=== PATIENT | female | born 1995 | race Caucasian/White ===

== ENCOUNTER 2019-01-12 19:54 | Emergency (ER) | payer BC ==
[2019-01-12 20:18] VITALS: BP 108/69
--- NOTE | 2019-01-12 21:11 | UC ---
Respiratory Complaint HPI - HPI Summary HPI Summary: Ms. Lemos presents with URI symptoms of congestion, sore throat and earaches for over a week. Now she has a lot of pain in her throat and lower face (she points at her maxillary sinuses). She also has a mild cough. - History of Current Complaint Chief Complaint: UCRespiratory Stated Complaint: SORE THROAT, AND ACHES Time Seen by Provider: 01/12/19 20:59 Hx Obtained From: Patient Hx Last Menstrual Period: 12/17/18 ?: No - Denies Timing: Constant Severity Initially: Moderate Severity Currently: Moderate Pain Intensity: 5 Character: Cough: Nonproductive Aggravating Factors: Nothing Alleviating Factors: Nothing Associated Signs And Symptoms: Positive: URI, Nasal Congestion, Sinus Discomfort - Allergies/Home Medications Allergies/Adverse Reactions: Allergies Allergy/AdvReac Type Severity Reaction Status Date / Time No Known Allergies Allergy Verified 01/12/19 20:18 Home Medications: Home Medications Diphenhydra/Phenyleph/Acetamin [Cold & Flu Relief Multi-S 12.5-5-325 mg/10Ml] 1 liq PO PRN 01/12/19 [History] Sertraline* [Zoloft*] 100 mg PO DAILY 01/12/19 [History Confirmed 01/12/19] PMH/Surg Hx/FS Hx/Imm Hx Previously Healthy: Yes - Surgical History Surgical History: Yes Surgery Procedure, Year, and Place: 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 Triage Information Reviewed: Yes Appearance: Well-Appearing Vital Signs: Initial Vital Signs Temp 99.4 F 01/12/19 20:14 Pulse 82 01/12/19 20:14 Resp 16 01/12/19 20:14 BP 108/69 01/12/19 20:14 Pulse Ox 100 01/12/19 20:14 Vital Signs Reviewed: Yes Eye Exam: Normal ENT: Positive: Pharyngeal erythema, Nasal congestion, Nasal drainage, TMs normal , Sinus tenderness, Other - Her maxillary sinuses don't tranilluminate well Dental Exam: Normal Neck: Positive: Supple, Nontender, Enlarged Nodes @ - right anterior cervical Respiratory Exam: Normal Cardiovascular Exam: Normal Skin Exam: Normal Respiratory Course/Dx - Course Course Of Treatment: This likely stared as a viral URI but I think she is getting a secondary sinus infection. I will treat her with augmentin and a decongestant. - Differential Dx/Diagnosis Provider Diagnosis: Sinusitis, URI (upper respiratory infection) Discharge - Sign-Out/Discharge Documenting (check all that apply): Patient Departure All imaging exams completed and their final reports reviewed: No Studies - Discharge Plan Condition: Stable Disposition: HOME Patient Education Materials: Upper Respiratory Infection (ED), Sinusitis (ED) Forms: *Work Release Referrals: Qian Jensen MD [Primary Care Provider] - - Billing Disposition and Condition Condition: STABLE Disposition: Home
[2019-01-12 21:22] LABS: Influenza A Molecular NEGATIVE (Negative); Influenza B Molecular NEGATIVE (Negative)
[2019-01-12] MEDS ORDERED: Amoxicillin/Clavulanate TAB* 875 MG PO ONE (21:42)
== END 2019-01-12 21:52 | disposition home or self-care (01) ==
LOC: UCEAST 19:54
DX: J32.9 Chronic sinusitis, unspecified (principal); J06.9 Acute upper respiratory infection, unspecified
CPT/HCPCS: 87651; 99212; A9270-GY; G0463

== ENCOUNTER 2019-04-10 07:53 | Emergency (ER) | payer BC ==
[2019-04-10 08:03] VITALS: BP 114/76
--- NOTE | 2019-04-10 08:24 | UC ---
Respiratory Complaint HPI - HPI Summary HPI Summary: 23 yo female presents with feeling like she cannot take a full breath. She tells me that since 04/07 she feels that she can't "catch her breath" unless she yawns or tries to breath really deeply. She has had this happen in the past about 1 year ago when she was wearing a mask during flu season, but as soon as she removed the mask her symptoms resolved. She is feeling well otherwise and denies fever, recent illness, sinus symptoms, sore throat, cough, SOB, chest pain/pressure/palpitations, abdominal pain, n/v, dysuria. No recent travel. No personal hx or fam hx of blood clots or PEs. She does not smoke. She took a plan B pill 2-3 weeks ago as she was sexually active without protection with her boyfriend - states that there could be a chance she is . 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 - Family History Known Family History: Positive: Other - anxiety - Social History Occupation: Employed Full-time Alcohol Use: Occasionally Substance Use Type: None Smoking Status (MU): Never Smoked Tobacco Review of Systems All Other Systems Reviewed And Are Negative: Yes Constitutional: Positive: Negative Skin: Positive: Negative Eyes: Positive: Negative ENT: Positive: Negative Respiratory: Positive: Other - "can't take full breath" Cardiovascular: Positive: Negative Gastrointestinal: Positive: Negative Genitourinary: Positive: Negative Motor: Positive: Negative Neurovascular: Positive: Negative Musculoskeletal: Positive: Negative Neurological: Positive: Negative Psychological: Positive: Negative Physical Exam - Summary Physical Exam Summary: GENERAL: NAD. WDWN. No pain distress. SKIN: No rashes, sores, or open wounds. HEENT: Head: AT/NC Eyes: PERRLA. EOM intact. Conjunctiva clear without inflammation or discharge. Ears: Hearing grossly normal. TMs intact, no bulging, erythema, or edema. Nose: Nasal mucosa pink and moist. NTTP maxillary and frontal sinus. Throat: Posterior oropharynx without exudates, erythema, or tonsillar enlargement. Uvula midline. NECK: Supple. Nontender. No lymphadenopathy. CHEST: CTAB. No r/r/w. No accessory muscle use. Breathing comfortably and in no distress. CV: RRR. Without m/r/g. Pulses intact. Brisk cap refill. ABDOMEN: Soft. NTTP. No distention or guarding. Bowel sounds present NEURO: Alert. PSYCH: Age appropriate behavior. Triage Information Reviewed: Yes Vital Signs: Initial Vital Signs Temp 97.7 F 04/10/19 07:57 Pulse 81 04/10/19 07:57 Resp 18 04/10/19 07:57 BP 114/76 04/10/19 07:57 Pulse Ox 100 04/10/19 07:57 Vital Signs Reviewed: Yes Respiratory Course/Dx - Course Course Of Treatment: EKbpm NSR. No STEMI as read by Dr. Henriquez. POC glucose 100 CXR: IMPRESSION: #. Elevated lung volumes may reflect obstructive lung disease or simply exuberant inspiratory effort for examination. #. No acute cardiopulmonary process evident. Urine negative. Well's criteria score is 0 and is low risk. She is hemodynamically stable without tachycardia or tachypnea. She does not smoke and has not had any recent travel. Low suspicion for PE at this time. Discussed case with Dr. Henriquez and he agrees. I recommended that she f/u with her PCP for further evaluation. She is asking to try an albuterol inhaler at this time in case this is allergies causing bronchospasm or inflammation. Will trial her with albuterol. We had a long discussion that her workup and exam were normal. Strongly advised that if she develops new or worsening symptoms, shortness of breath, chest or abdominal pain to go to the ER. Pt voiced understanding and agrees with plan. - Differential Dx/Diagnosis Provider Diagnosis: Dyspnea Discharge - Sign-Out/Discharge Documenting (check all that apply): Patient Departure All imaging exams completed and their final reports reviewed: Yes - Discharge Plan Condition: Stable Disposition: HOME Prescriptions: Albuterol HFA INHALER* [Ventolin HFA Inhaler*] 1 puff INH Q6H PRN #1 mdi PRN Reason: Sob/Wheezing Patient Education Materials: Dyspnea (ED) Forms: *Work Release Referrals: Qian Jensen MD [Primary Care Provider] - Additional Instructions: If you develop a fever, shortness of breath, chest pain, new or worsening symptoms - please go to the ED immediately. Your chest X-Ray, test, glucose, and EKG were all normal today. I recommend that you follow up with your Primary Doctor within 1 week for further evaluation if your symptoms continue. - Billing Disposition and Condition Condition: STABLE Disposition: Home
== END 2019-04-10 10:19 | disposition home or self-care (01) ==
LOC: UCEAST 07:53
DX: R06.00 Dyspnea, unspecified (principal); Z32.02 Encounter for pregnancy test, result negative
CPT/HCPCS: 71046; 84702; 93005; 99212; G0463

== ENCOUNTER 2019-04-14 11:39 | Emergency (ER) | payer BC ==
[2019-04-14 11:56] VITALS: BP 114/71
--- NOTE | 2019-04-14 12:21 | UC ---
Complaint Female HPI - HPI Summary HPI Summary: 23-year-old female who is here because she wants treatment for a vaginal yeast infection. She states she's had vaginal itching with no discharge over the past 2 days. Today she did insert a Monistat but would like the Diflucan. She denies any urinary symptoms. - History Of Current Complaint Chief Complaint: UCGU Stated Complaint: UTI Time Seen by Provider: 04/14/19 12:13 Hx Obtained From: Patient Hx Last Menstrual Period: 03/04/19 ?: No Onset/Duration: Gradual Onset Timing: Constant Severity Initially: Mild Severity Currently: Mild Pain Intensity: 4 Aggravating Factor(s): Nothing, Other - Constant vaginal itching. 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 - Family History Known Family History: Positive: Other - anxiety - Social History Alcohol Use: Occasionally Substance Use Type: None Smoking Status (MU): Never Smoked Tobacco Review of Systems All Other Systems Reviewed And Are Negative: Yes Genitourinary: Positive: Vaginal/Penile Itching Is Patient Immunocompromised?: No Physical Exam Triage Information Reviewed: Yes Appearance: Well-Appearing, No Pain Distress, Well-Nourished Vital Signs: Initial Vital Signs Temp 99.1 F 04/14/19 11:52 Pulse 89 04/14/19 11:52 Resp 18 04/14/19 11:52 BP 114/71 04/14/19 11:52 Pulse Ox 100 04/14/19 11:52 Vital Signs Reviewed: Yes Respiratory: Positive: Lungs clear, Normal breath sounds, No respiratory distress, No accessory muscle use Cardiovascular: Positive: RRR, No Murmur, Pulses Normal, Brisk Capillary Refill Abdomen Description: Positive: Nontender, No Organomegaly, Soft. Negative: CVA Tenderness (R), CVA Tenderness (L) Bowel Sounds: Positive: Present Pelvic Exam: Positive: Other - Patient preferred to not have a pelvic exam at this time she would rather have the Diflucan in the follow-up with her primary care provider as needed. Musculoskeletal Exam: Normal Neurological Exam: Normal Psychological Exam: Normal Skin Exam: Normal Complaint Female Dx - Course Course Of Treatment: Patient preferred to not have a pelvic exam at this time she would rather have the Diflucan in the follow-up with her primary care provider as needed. - Differential Dx/Diagnosis Provider Diagnosis: Yeast infection Discharge - Sign-Out/Discharge Documenting (check all that apply): Patient Departure All imaging exams completed and their final reports reviewed: No Studies - Discharge Plan Condition: Fair Disposition: HOME Prescriptions: Fluconazole 150 MG TAB* [Diflucan 150 MG TAB*] 150 mg PO UC ONCE 1 Days #1 tablet Patient Education Materials: Yeast Infection (ED) Referrals: Qian Jensen MD [Primary Care Provider] - Additional Instructions: Follow-up with your primary care provider or your [facility] physician if no improvement in 3 or 4 days. - Billing Disposition and Condition Condition: FAIR Disposition: Home
== END 2019-04-14 12:20 | disposition home or self-care (01) ==
LOC: UCEAST 11:39
DX: B37.9 Candidiasis, unspecified (principal)
CPT/HCPCS: 99212; G0463

== ENCOUNTER 2019-12-18 14:54 | Emergency (ER) | payer BC ==
--- NOTE | 2019-12-18 18:53 | UC ---
FLU HPI - HPI Summary HPI Summary: 24-year-old female presents with onset of general malaise, fatigue, headache, body aches, mild nasal congestion, mild sore throat, and a dry nonproductive cough 3 days ago. No measured fever. No recent travel or known contact with persons isolated for or diagnosed with COVID-19. Denies ear pain, dysphagia, chest pain, shortness of breath, abdominal pain, nausea, vomiting, or diarrhea. - History of Current Complaint Chief Complaint: UCRespiratory Stated Complaint: COUGH, FEVER Time Seen by Provider: 12/18/19 18:37 Hx Obtained From: Patient Hx Last Menstrual Period: current Pain Intensity: 3 - Allergy/Home Medications Allergies/Adverse Reactions: Allergies Allergy/AdvReac Type Severity Reaction Status Date / Time No Known Allergies Allergy Verified 12/18/19 18:42 Home Medications: Home Medications NK [No Home Medications Reported] 12/18/19 [History Confirmed 12/18/19] PMH/Surg Hx/FS Hx/Imm Hx Previously Healthy: Yes - Denies significant PMH - Surgical History Surgical History: Yes Surgery Procedure, Year, and Place: 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 Negative: Fever, Chills Skin: Negative: Rash Eyes: Negative: Drainage, Eye Redness ENT: Positive: Sore Throat, Sinus Congestion. Negative: Ear Ache, Nasal Discharge, Sinus Pain/Tenderness Respiratory: Positive: Cough. Negative: Shortness Of Breath Cardiovascular: Negative: Palpitations, Chest Pain Gastrointestinal: Negative: Abdominal Pain, Vomiting, Diarrhea, Nausea Genitourinary: Positive: Negative Musculoskeletal: Positive: Myalgia Neurological/Mental Status: Positive: Headache Is Patient Immunocompromised?: No Physical Exam - Summary Physical Exam Summary: GENERAL APPEARANCE: Well developed, well nourished, alert and cooperative, and appears to be in no acute distress. EYES: Conjunctiva clear. No drainage. EARS: External auditory canals and tympanic membranes clear, hearing grossly intact. NOSE: Mild nasal congestion. No nasal discharge. THROAT: Mild pharyngeal erythema without tonsilar inflammation, swelling, exudate, or lesions. Uvula midline. NECK: Neck supple, non-tender without lymphadenopathy. CARDIAC: Normal S1 and S2. No S3, S4 or murmurs. Rhythm is regular. There is no peripheral edema, cyanosis or pallor. Extremities are warm and well perfused. Capillary refill is less than 2 seconds. Peripheral pulses intact. LUNGS: Clear to auscultation without rales, rhonchi, wheezing or diminished breath sounds. Cough nonobserved. ABDOMEN: Positive bowel sounds. Soft, nondistended, nontender. No guarding or rebound. No masses or hepatosplenomegally. MUSKULOSKELETAL: ROM intact to all extremities. No joint erythema or tenderness. Normal muscular development. Normal gait. SKIN: Skin normal color, texture and turgor with no lesions or eruptions. Triage Information Reviewed: Yes Vital Signs Reviewed: Yes Flu Course/Dx - Course Course Of Treatment: 24-year-old female presents with onset of general malaise, fatigue, headache, body aches, mild nasal congestion, mild sore throat, and a dry nonproductive cough 3 days ago. No measured fever. No recent travel or known contact with persons isolated for or diagnosed with COVID-19. Denies ear pain, dysphagia, chest pain, shortness of breath, abdominal pain, nausea, vomiting, or diarrhea. Afebrile. Vital signs stable. Patient had mild nasal congestion, normal TMs , mild pharyngeal erythema without tonsillar swelling or exudate, no cervical lymphadenopathy, clear bilateral breath sounds, and otherwise unremarkable exam. Rapid flu test was negative. Reviewed results with the patient and recommending symptomatic treatment for a viral upper respiratory infection. She is to follow-up with her primary care provider in 3-5 days if symptoms are not improving. Anticipatory guidance and warning symptoms were reviewed with the patient. Verbalizes understanding and agrees with plan of care. - Differential Dx/Diagnosis Differential Diagnosis/HQI/PQRI: Bronchitis, Influenza, Pneumonia, Upper Respiratory Infection Provider Diagnosis: URI (upper respiratory infection) Discharge ED - Sign-Out/Discharge Documenting (check all that apply): Patient Departure All imaging exams completed and their final reports reviewed: No Studies - Discharge Plan Condition: Stable Disposition: HOME Patient Education Materials: Upper Respiratory Infection (ED) Forms: *Work Release Referrals: Qian Jensen MD [Primary Care Provider] - 3 Days Additional Instructions: The rapid flu test performed in the clinic today was negative. Your history and exam are consistent with a viral upper respiratory infection. Viral infections do not respond to antibiotics and are limited to the treatment of symptoms. Viral infections typically run their course in 7-10 days. Drink plenty of fluids to avoid dehydration especially if you are running any fever. Use a saline rinse kit such as Neti Pot or NeilMed at least twice a day to help thin secretions and promote drainage of the sinuses. Use fluticasone (Flonase) nasal spray 2 sprays each nostril once daily. Take over the counter acetaminophen (Tylenol) or ibuprofen (Advil, Motrin) according to directions as needed for pain or fever. Use salt water gargles several times a day if you have a sore throat. You may also use Chloraseptic spray or Cepacol lonzenges according to directions which contain a numbing medication and can provide some temporary relief from your sore throat. Follow up with your primary care provider in 3-5 days if symptoms persist. Seek immediate medical attention in the emergency room if you have fever greater than 100.5 F despite taking acetaminophen or ibuprofen, have chest pain , difficulty breathing, are unable to swallow, or have any worsening of symptoms. - Billing Disposition and Condition Condition: STABLE Disposition: Home
[2019-12-18 19:20] VITALS: BP 119/68
[2019-12-18 19:22] LABS: Influenza A Molecular Negative (Negative); Influenza B Molecular Negative (Negative)
[2019-12-19 13:58] LABS: HIV 4th Generation Nonreactive (Nonreactive)
== END 2019-12-18 19:28 | disposition home or self-care (01) ==
LOC: UCEAST 14:54
DX: J06.9 Acute upper respiratory infection, unspecified (principal); F17.210 Nicotine dependence, cigarettes, uncomplicated
CPT/HCPCS: 36415; 87389; 99211; G0463

== ENCOUNTER 2019-12-20 09:20 | Emergency (ER) | payer BC ==
--- NOTE | 2019-12-20 09:26 | UC ---
Respiratory Complaint HPI - HPI Summary HPI Summary: The patient is a 24-year-old female who works at a [employer]. She had the onset last night of fever, shaking chills, headache, myalgias, nasal congestion , and postnasal drip. This morning she has had nausea and some crampy abdominal pain. She has no history of asthma but has an inhaler at home (.ex smoker with frequent bronchitis) - History of Current Complaint Stated Complaint: FEVER, RESPIRATORY Time Seen by Provider: 12/20/19 09:22 Hx Obtained From: Patient Hx Last Menstrual Period: current Onset/Duration: Gradual Onset, Lasting Hours Timing: Constant Severity Initially: Moderate Severity Currently: Moderate Pain Intensity: 6 Character: Cough: Nonproductive Aggravating Factors: Nothing Alleviating Factors: Nothing Associated Signs And Symptoms: Positive: Fever, Chills, Wheezing, URI, Nasal Congestion - Allergies/Home Medications Allergies/Adverse Reactions: Allergies Allergy/AdvReac Type Severity Reaction Status Date / Time No Known Allergies Allergy Verified 12/20/19 09:47 Home Medications: Home Medications Benzonatate CAP* [Tessalon CAP*] 100 - 200 mg PO TID PRN #28 cap 12/20/19 [Rx] Ondansetron TAB* [Zofran Tab*] 4 mg PO Q6H PRN #10 tab 12/20/19 [Rx] PMH/Surg Hx/FS Hx/Imm Hx Previously Healthy: Yes - Surgical History Surgical History: Yes Surgery Procedure, Year, and Place: 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 - Family History Known Family History: Positive: Hypertension, Other - anxiety - Social History Alcohol Use: Weekly Substance Use Type: None Smoking Status (MU): Current Every Day Smoker Amount Used/How Often: 1-3 sig/day Review of Systems All Other Systems Reviewed And Are Negative: Yes Constitutional: Positive: Fever, Chills, Fatigue Skin: Positive: Negative Eyes: Positive: Negative ENT: Positive: Ear Ache, Nasal Discharge, Sinus Congestion, Sinus Pain/ Tenderness Respiratory: Positive: Cough Cardiovascular: Positive: Negative Gastrointestinal: Positive: Nausea, Other - loose stool x 1 Genitourinary: Positive: Negative Motor: Positive: Negative Musculoskeletal: Positive: Myalgia Neurological/Mental Status: Positive: Headache Psychological: Positive: Negative Physical Exam Triage Information Reviewed: Yes Appearance: No Pain Distress, Thin, Other: - ill but not toxic appearing Vital Signs Reviewed: Yes Eyes: Positive: Conjunctiva Clear ENT: Positive: Hearing grossly normal, Nasal congestion, Nasal drainage, Uvula midline. Negative: Tonsillar swelling, Tonsillar exudate, Trismus, Muffled voice, Hoarse voice Dental Exam: Normal Neck: Positive: Supple, Nontender, No Lymphadenopathy Respiratory: Positive: No respiratory distress, No accessory muscle use, Wheezing Cardiovascular: Positive: RRR, No Murmur Abdominal Exam: Normal Bowel Sounds: Positive: Present Musculoskeletal: Positive: ROM Intact, No Edema Neurological: Positive: Alert, Muscle Tone Normal Psychological Exam: Normal Skin Exam: Normal Diagnostics - Laboratory Lab Results: influenza (-) Respiratory Course/Dx - Differential Dx/Diagnosis Provider Diagnosis: Viral syndrome Discharge ED - Sign-Out/Discharge Documenting (check all that apply): Patient Departure All imaging exams completed and their final reports reviewed: No Studies - Discharge Plan Condition: Stable Disposition: HOME Prescriptions: Benzonatate CAP* [Tessalon CAP*] 100 - 200 mg PO TID PRN #28 cap PRN Reason: Cough Ondansetron TAB* [Zofran Tab*] 4 mg PO Q6H PRN #10 tab PRN Reason: Nausea Patient Education Materials: Viral Syndrome (ED) Forms: *Work Release Referrals: Qian Jensen MD [Primary Care Provider] - If Needed Additional Instructions: you flu test was negative rest fluids tylenol if needed a test for COVID -19 is pending ....results take 2-6 days see In-home Isolation sheet the health department will contact you - Billing Disposition and Condition Condition: STABLE Disposition: Home
[2019-12-20 09:47] VITALS: BP 103/61
[2019-12-20 09:54] LABS: Influenza A Molecular Negative (Negative); Influenza B Molecular Negative (Negative)
[2019-12-20] MEDS ORDERED: Ondansetron ODT TAB* 4 MG PO ONE (09:57)
== END 2019-12-20 11:00 | disposition home or self-care (01) ==
LOC: UCEAST 09:20
DX: B34.9 Viral infection, unspecified (principal); R68.83 Chills (without fever); R51 Headache; R09.81 Nasal congestion; R09.82 Postnasal drip; M79.10 Myalgia, unspecified site; F17.290 Nicotine dependence, other tobacco product, uncomplicated; R53.83 Other fatigue; R11.0 Nausea; H92.09 Otalgia, unspecified ear
CPT/HCPCS: 99212; A9270-GY; G0463; U0002